=== PATIENT | male | born 1995 | race Caucasian/White ===

== ENCOUNTER 2022-07-31 09:17 | Observation (INO) | payer OTHER, SELFPAY ==
[2022-07-31] VITALS (11 sets, daily range): BP systolic 124–149; BP diastolic 67–88; PULSE 85–102; RESP 18–24; TEMP 36.6–36.7; O2SAT 91–94; BMI 27.1; BMI 26.8
--- NOTE | 2022-07-31 09:37 | CRLHL7_ITS ---
For Patients: As a result of the Century Cures Act, medical imaging exams and procedure reports are released immediately into your electronic medical record. You may view this report before your referring provider. If you have questions, please contact your health care provider. INDICATION: short of breath TECHNIQUE: Chest 1 view COMPARISON: None FINDINGS: Cardiovascular and mediastinum: Heart size and vasculature are normal in caliber and appearance. Lungs and pleural spaces: Lungs are clear. No sign of infiltrate or mass. No sign of pleural effusion. No pneumothorax. Bones and soft tissues: No significant findings. IMPRESSION: No acute findings. Dictated by Josh Jimenez MD @ 07/31/2022 11:03:30 AM (Electronically Signed)
--- NOTE | 2022-07-31 09:42 | ED_ITS ---
HPI - General Adult General Time Seen by Provider: 09:42 Date Seen: 07/31/22 Chief complaint: Shortness of Breath/Dyspnea Stated complaint: Short of breath, fever Time Seen by Provider: 07/31/22 09:42 Source: patient and RN notes reviewed Mode of arrival: ambulatory Limitations: no limitations History of Present Illness HPI narrative: This 21-year-old male is coming in with shortness of breath, difficulty breathing. He has been ill. Has had some sore throat with coughing. [place] feverish overnight. Came in today because he is significantly short of breath. He does have 4 cats in his house and has had a history of animal dander but this has not been problematic per report through the years. Denies any history of asthma. Related Data Home Medications Medication Instructions Recorded Confirmed No Known Home Medications 07/31/22 07/31/22 Allergies Allergy/AdvReac Type Severity Reaction Status Date / Time No Known Drug Allergies Allergy Verified 07/31/22 09:33 Review of Systems Status of ROS: Reports: 10 or more systems reviewed and unremarkable except as noted in History and below Exam Const: Vital Signs, click to edit/add: Vital Signs - 24 hr 07/31/22 09:32 07/31/22 09:54 Temperature 97.8 F Pulse Rate [Right Pulse Oximeter] 96 Respiratory Rate 22 22 Blood Pressure [Ri ght Upper Arm] 149/88 H Pulse Oximetry 91 92 Oxygen Delivery Me thod Room Air Nasal Cannula Oxygen Flow Rate 2 Documenting provider has reviewed patient's vital signs: yes Common normal s: average body habitus, oriented x3, no limitations, alert and well nourished General appearance: cooperative, well kempt and ill appearing Other: Nursing staff had applied oxygen on arrival, patient is tachypneic, speaking in short phrases. Mildly diaphoretic. Sitting up on the edge of the ER bed with 2 L nasal cannula oxygen on. Did turn the oxygen off when I was in with him and he went from 93% back down to 90%. Turned the oxygen back on. HENMT: Common normals: normocephalic, head/scalp atraumatic, hearing grossly normal bilaterally, external ears normal, EAC's normal, TM's normal bilaterally, external nose normal, nasal mucous membranes and turbinates normal, moist oral mucous membranes, oropharynx normal, dentition normal and gingiva normal Head and scalp: normocephalic and atraumatic Nose: external nose normal and nasal mucous membranes and turbinates normal External ear: external ears normal External auditory canal: EAC's normal Tympanic membrane: TM's normal bilaterally Eye: Common normals: PERRL, EOMs intact bilaterally, conjunctivae normal and no scleral icterus Conjunctiva: conjunctiva(e) normal Pupil: PERRL Neck & C-Spine: Common normals: full ROM, no lymphadenopathy, supple, no meningeal signs, no JVD and thyroid normal Thyroid: thyroid normal Chest: Common normals: inspection of chest normal and palpation of chest normal Resp: Effort & inspection: symmetric chest movement and tachypneic Auscultation: wheezes expiratory wheezes, inspiratory wheezes and throughout Cardio: Common normals: no JVD, regular rate, regular rhythm, S1 normal heart sound, S2 normal heart sound, no gallops, no clicks, no murmurs and no rub Rate: regular rate Rhythm: regular rhythm Heart sounds: S1 normal and S2 normal GI: Common normals: Normal to inspection, nondistended, normoactive bowel sounds present Extremity: Other: No noted lower extremity edema. Neuro: Common normals: oriented x3 Sensorium/orientation: alert Meningeal signs: no meningeal signs Psych: Appearance: well kempt Course Course Hospital Course: We will have him maintained on pulse oximetry, some supplemental oxygen. Am going to administer a DuoNeb, nursing staff had ordered a portable chest x-ray and we are waiting that. We will do the triple viral swab and obtain some laboratory evaluation. Infectious etiology with bronchospasm, underlying bronchospastic condition all possible etiologies here. He will be watched closely. Reevaluation(s) Reevaluation #1: Patient is re-examined. He has now diffuse expiratory wheezing, is moving air better but still sounds quite afflicted with bronchospasm. Will have respiratory therapy whom is with him initiate an albuterol neb. am going to give him 10 mg oral Zyrtec and 60 mg oral prednisone. Use senna feels are up on his CBC, white blood count is normal. Chest x-ray my preliminary read without any infectious etiology. We did discuss the high likelihood of this being allergen induced, need to consider the CT as the source. Sounds if he would be interested in seeing an oracle e business developer and doing further workup. Time: 10:43 Reevaluation #2: Have been updated by a respiratory therapy that patient did require oxygen again. He had a brief time just after I talked to mom regarding discharge where he went to 80 and 89% but then came back up. I reviewed with him that we were going to observe him here for little while longer prior to discharge. I was a bit worried about him having to go back into the environment where there were the cats. Thus, now with requiring oxygen again, will need admission. Time: 11:59 Consultations Consultation #1: Spoke with hospitalist, will agree with hospitalization. Time: 12:29 Vital Signs Vital signs: Initial Vital Signs Temperature 97.8 F 07/31/22 09:32 Temperature Source Temporal Artery Scan 07/31/22 09:32 Pulse Rate 96 07/31/22 09:32 Respiratory Rate 22 07/31/22 09:32 Blood Pressure 149/88 H 07/31/22 09:32 Blood Pressure Mean 108 07/31/22 09:32 Blood Pressure Position Sitting 07/31/22 09:32 Pulse Oximetry 91 07/31/22 09:32 Oxygen Delivery Method 07/31/22 09:32 Vital Signs Temperature 97.8 F 07/31/22 09:32 Pulse Rate 96 07/31/22 09:32 Respiratory Rate 22 07/31/22 09:32 Blood Pressure 149/88 H 07/31/22 09:32 Pulse Oximetry 91 07/31/22 09:32 Oxygen Delivery Method 07/31/22 09:32 Temperature 97.8 F 07/31/22 09:32 Pulse Rate 96 07/31/22 09:32 Respiratory Rate 22 07/31/22 09:54 Blood Pressure 149/88 H 07/31/22 09:32 Pulse Oximetry 92 07/31/22 09:54 Oxygen Delivery Method 07/31/22 09:54 Oxygen Flow Rate 2 07/31/22 09:54 Medical Decision Making Lab Data Labs: Lab Results 07/31/22 07/31/22 07/31/22 Range/Units 09:37 10:15 10:15 WBC 9.43 (4.50-11.00) K/uL RBC 5.77 (4.30-5.90) m/uL Hgb 16.5 (13.5-17.5) gm/dL Hct 48.9 (37.0-53.0) % MCV 85 (80-100) fL MCH 29 (26-34) pg MCHC 34 (32-36) gm/dL RDW Coeff of Martín 13.0 (11.5-15.5) % Plt Count 227 (140-440) K/uL Neut % (Auto) 68.2 (42.0-72.0) % Lymph % (Auto) 12.8 L (20-44) % [place] % (Auto) 6.7 (0.0-11.0) % Eos % (Auto) 11.7 H (0.0-7.0) % Baso % (Auto) 0.5 (0.0-3.0) % Neut # (Auto) 6.43 (1.7-7.0) K/uL Lymph # (Auto) 1.20 (0.90-2.90) K/uL [place] # (Auto) 0.60 (0.00-0.90) K/UL Eos # (Auto) 1.10 H (0.00-0.50) K/uL Baso # (Auto) 0.05 (0.00-0.30) K/uL Sodium 138 (135-149) mmol/L Potassium 4.7 (3.6-5.1) mmol/L Chloride 105 (96-114) mmol/L Carbon Dioxide 27 (20-32) mmol/L BUN 11 (5-24) mg/dL Creatinine 0.7 (0.5-1.5) mg/dL Estimated Creat Clear 172.44 Estimated GFR 129 ml/min Glucose 99 (60-115) mg/dL Lactate (0.5-1.9) mmol/L Calcium 9.1 (8.4-10.6) mg/dL Total Bilirubin 0.6 (0.1-1.5) mg/dL AST 28 (12-35) U/L ALT 26 (4-50) U/L Alkaline Phosphatase 59 (40-150) U/L C-Reactive Protein 1.6 H (0.5-1.0) mg/dL Total Protein 7.7 (6.0-8.3) g/dL Albumin 4.8 (3.3-5.0) g/dL Procalcitonin (<0.50) ng/mL SARS-CoV-2 (PCR) Negative SARS-CoV-2 (Negative) Influenza Type A (PCR) Negative PCR FLU A (Negative) Influenza Type B (PCR) Negative PCR FLU B (Negative) RSV (PCR) Negative PCR RSV (Negative) 07/31/22 07/31/22 Range/Units 10:15 10:15 WBC (4.50-11.00) K/uL RBC (4.30-5.90) m/uL Hgb (13.5-17.5) gm/dL Hct (37.0-53.0) % MCV (80-100) fL MCH (26-34) pg MCHC (32-36) gm/dL RDW Coeff of Martín (11.5-15.5) % Plt Count (140-440) K/uL Neut % (Auto) (42.0-72.0) % Lymph % (Auto) (20-44) % [place] % (Auto) (0.0-11.0) % Eos % (Auto) (0.0-7.0) % Baso % (Auto) (0.0-3.0) % Neut # (Auto) (1.7-7.0) K/uL Lymph # (Auto) (0.90-2.90) K/uL [place] # (Auto) (0.00-0.90) K/UL Eos # (Auto) (0.00-0.50) K/uL Baso # (Auto) (0.00-0.30) K/uL Sodium (135-149) mmol/L Potassium (3.6-5.1) mmol/L Chloride (96-114) mmol/L Carbon Dioxide (20-32) mmol/L BUN (5-24) mg/dL Creatinine (0.5-1.5) mg/dL Estimated Creat Clear Estimated GFR ml/min Glucose (60-115) mg/dL Lactate 0.6 (0.5-1.9) mmol/L Calcium (8.4-10.6) mg/dL Total Bilirubin (0.1-1.5) mg/dL AST (12-35) U/L ALT (4-50) U/L Alkaline Phosphatase (40-150) U/L C-Reactive Protein (0.5-1.0) mg/dL Total Protein (6.0-8.3) g/dL Albumin (3.3-5.0) g/dL Procalcitonin 0.05 (<0.50) ng/mL SARS-CoV-2 (PCR) (Negative) Influenza Type A (PCR) (Negative) Influenza Type B (PCR) (Negative) RSV (PCR) (Negative) Imaging Data Chest x-ray: Attestation: I have reviewed the pertinent imaging results. My impression: No acute cardiopulmonary pathology on my preliminary read. Radiologist's impression: Patient: ROSS BRICE Facility:?[facility] Patient ID:?[id number] Site Patient ID:?[id number]. Site :?[id number] Study:?XRay Chest PORTABLE-07/31/2022 10:39:33 AM Ordering Physician:Orestes Gray Final Report: INDICATION: short of breath TECHNIQUE: Chest 1 view COMPARISON: None FINDINGS: Cardiovascular and mediastinum: Heart size and vasculature are normal in caliber and appearance. Lungs and pleural spaces: Lungs are clear. No sign of infiltrate or mass. No sign of pleural effusion. No pneumothorax. Bones and soft tissues: No significant findings. IMPRESSION: No acute findings. Dictated by Josh Jimenez MD @ 07/31/2022 11:03:30 AM (Electronic Signature) Critical Care Time Critical Care Time Critical Care Time: No Discharge Plan Discharge Clinical Impression: Acute bronchospasm Patient Disposition: Admitted As Inpatient Condition: Stable Activity Level: Activity as Tolerated
[2022-07-31 10:18] LABS: Lactate* 0.6 mmol/L (0.5-1.9)
[2022-07-31 10:19] LABS: Basophils Absolute Auto 0.05 K/uL (0.00-0.30); Basophils Percent Auto 0.5 % (0.0-3.0); Eosinophils Percent Auto 11.7 % (0.0-7.0); Hematocrit 48.9 % (37.0-53.0); Hemoglobin* 16.5 gm/dL (13.5-17.5); Immature Granulocytes Abs Auto 0.01 K/uL (0.00-0.30); Immature Granulocytes Pct Auto 0.1 %; Lymphocytes Percent Auto 12.8 % (20-44); Mean Corpuscular HGB Conc 34 gm/dL (32-36); Mean Corpuscular Hemoglobin 29 pg (26-34); Mean Corpuscular Volume 85 fL (80-100); Monocytes Percent Auto 6.7 % (0.0-11.0); Neutrophils Absolute Auto 6.43 K/uL (1.7-7.0); Neutrophils Percent Auto 68.2 % (42.0-72.0); Platelet Count* 227 K/uL (140-440); Red Blood Count 5.77 m/uL (4.30-5.90); White Blood Count* 9.43 K/uL (4.50-11.00)
[2022-07-31 10:21] LABS: Slide Review Reflex No
[2022-07-31] MEDS: IPRAT-ALBUT 0.5-2.5 MG/3 ML NEB 1 NEB IH ×3 (10:23→21:28)
[2022-07-31 10:26] LABS: PCR FLU A Negative PCR FLU A (Negative); PCR FLU B Negative PCR FLU B (Negative); PCR RSV Negative PCR RSV (Negative)
[2022-07-31 10:33] LABS: SARS PCR* Negative SARS-CoV-2 (Negative)
[2022-07-31 10:37] LABS: Albumin* 4.8 g/dL (3.3-5.0); Chloride* 105 mmol/L (96-114); Potassium* 4.7 mmol/L (3.6-5.1); Sodium* 138 mmol/L (135-149)
[2022-07-31 10:39] LABS: Creatinine* 0.7 mg/dL (0.5-1.5); Est. Creatinine Clearance* 172.44; Estimated Glomerular Filt Rate 129 ml/min
[2022-07-31 10:40] LABS: Alanine Aminotransferase* 26 U/L (4-50); Alkaline Phosphatase* 59 U/L (40-150); Aspartate Amino Transferase* 28 U/L (12-35); Bilirubin Total* 0.6 mg/dL (0.1-1.5); Blood Urea Nitrogen* 11 mg/dL (5-24); Carbon Dioxide* 27 mmol/L (20-32); Total Protein* 7.7 g/dL (6.0-8.3)
[2022-07-31 10:41] LABS: Calcium* 9.1 mg/dL (8.4-10.6); Glucose* 99 mg/dL (60-115)
[2022-07-31 10:43] LABS: C Reactive Protein* 1.6 mg/dL (0.5-1.0)
[2022-07-31] MEDS: ALBUTEROL SULFATE 2.5 MG/3 ML VIAL.NEB NEB (10:44)
[2022-07-31 10:57] LABS: Procalcitonin* 0.05 ng/mL (<0.50)
[2022-07-31] MEDS: CETIRIZINE HCL 10 MG TABLET PO (11:08)
[2022-07-31] MEDS: predniSONE 20 MG TABLET 60 MG PO (11:08)
--- NOTE | 2022-07-31 11:54 | RESP.RT ---
Patient sitting up in bed, on Nasal Cannula 2 Lpm, Respiratory rate 22/minute, SaO2 93%. Patient forceful, barking, dry, non-productive cough. Bilateral Breath sounds with expiratory wheeze, chest tightness with breathes noted. DuoNeb given with on demand small volume nebulizer, mouthpiece, and Oxygen flow meter @ 8 Lpm. Patient tolerated well. Post treatment VSS, BBS with increased musical wheeze, more air movement, patient able to take larger breath. Patient is a smoker, states 1/2 ppd, also two cats moved into home with in last month.
--- NOTE | 2022-07-31 12:00 | RESP.RT ---
Second nebulizer treatment given with Albuterol (first was DuoNeb) with same set up. Post treatment BBS were increased musical wheeze with very good air movement. Trialed patient on room air, 30 minutes patient decreased SaO2 88%, returned to Nasal Cannula 2 Lpm, SaO2 93%.
--- NOTE | 2022-07-31 13:51 | PM.IMHP1 ---
Hospitalist- H&P: HPI History of Present Illness Date Seen: 07/31/22 Chief complaint: Short of breath, fever Narrative: Wong Pruitt is a 27 year old male with past medical history of seasonal allergies presenting for evaluation of SOB and cough. The patient lives with his roommate. They recently got two new cats. They have 4 total cats in the house. The patient has had worsening sob, cough, and wheezing over the last week. The patient states his symptoms worsens when he is around the new cats. He also works in [employer] at [employer]. He endorses cough and intermittent chest pain. In the ED the patient was hypoxic and noted to be wheezing. He was started on zyrtec, prednisone, and duoneb. The patient states SOB improved with duoneb. CXR with no acute findings. RSV/Influenza/COVID pcr negative Review of Systems Status of ROS: Reports: 10 or more systems reviewed and unremarkable except as noted in History and below [facility] Social History (Updated 07/31/22 @ 13:55 by Paco Thomas MD) Narrative: works in [employer] at [employer]. Negative for tobacco. positive cat allergy What is your current living situation: I presently have a place to live In past 12 months, lack of transportation kept you from medical appts, meetings, work, or getting things needed for daily living: Yes Meds Home Medications and Allergies Home Medications Medication Instructions Recorded Confirmed Type No Known Home Medications 07/31/22 07/31/22 History Allergies Allergy/AdvReac Type Severity Reaction Status Date / Time No Known Drug Allergies Allergy Verified 07/31/22 09:33 Exam Narrative: Exam Narrative: Gen: no acute distress HEENT: NCAT EOMI mmm Neck: Supple CV: RRR normal s1 s2 Lungs:end expiratory wheezing Abd: Soft,nt, nd Neuro: Alert, oriented, CN grossly intact; nonfocal screening?exam Psych: appropriate affect MSK: age appropriate muscle mass Skin; Warm, dry no rash on face Const: Vital Signs, click to edit/add: Vital Signs - 24 hr 07/31/22 09:32 07/31/22 09:54 07/31/22 09:31 Temperature 97.8 F Pulse Rate [Right Pulse Oximeter] 96 92 Respiratory Rate 22 22 18 Blood Pressure [Ri ght Upper Arm] 149/88 H Pulse Oximetry 91 92 93 Oxygen Delivery Me thod Room Air Nasal Cannula Nasal Cannula Oxygen Flow Rate 2 2 07/31/22 11:31 07/31/22 13:31 07/31/22 11:00 Temperature Pulse Rate [Right Pulse Oximeter] 92 Respiratory Rate 20 20 20 Blood Pressure [Ri ght Upper Arm] Pulse Oximetry 94 93 93 Oxygen Delivery Me thod Nasal Cannula Nasal Cannula Nasal Cannula Oxygen Flow Rate 2 2 2 07/31/22 13:30 Temperature Pulse Rate [Right Pulse Oximeter] Respiratory Rate 18 Blood Pressure [Ri ght Upper Arm] Pulse Oximetry Oxygen Delivery Me thod Nasal Cannula Oxygen Flow Rate 2 Hospitalist - H&P: Result Labs Labs: Short CBC 07/31/22 Range/Units 10:15 WBC 9.43 (4.50-11.00) K/uL Hgb 16.5 (13.5-17.5) gm/dL Hct 48.9 (37.0-53.0) % Plt Count 227 (140-440) K/uL BMP 07/31/22 10:15 Sodium 138 Potassium 4.7 Chloride 105 Carbon Dioxide 27 BUN 11 Creatinine 0.7 Glucose 99 Calcium 9.1 Liver Function 07/31/22 Range/Units 10:15 Total Bilirubin 0.6 (0.1-1.5) mg/dL AST 28 (12-35) U/L ALT 26 (4-50) U/L Alkaline Phosphatase 59 (40-150) U/L Albumin 4.8 (3.3-5.0) g/dL Assessment and Plan Assessment and plan (1) Acute bronchospasm: Status: Acute Plan Wong Pruitt is a 27 year old male with past medical history of seasonal allergies presenting for evaluation of wheezing, SOB and cough. The patient lives with his roommate. They recently got two new cats. They have 4 total cats in the house. The patient has had worsening sob, cough, and wheezing over the last week. The patient states his symptoms worsens when he is around the new cats. In the ED the patient was hypoxic and noted to be wheezing. He was started on zyrtec, prednisone, and duoneb. The patient states SOB improved with duoneb. CXR with no acute findings. RSV/Influenza/COVID pcr negative 1. Acute reactive airway disease, acute asthma exacerbation, likely secondary to environmental trigger from exposure to new cats with acute hypoxia -admit to observation -solumedrol -duonebs -claritin -PPI -RT consult -wean oxygen Code-Full DVT ppx-low risk Dispo-likely home 1 vs 2 days
[2022-07-31] MEDS: METHYLPREDNISOLONE SOD SUCC 62.5 MG/ML (125) 125 MG IVP (14:24)
[2022-07-31] MEDS: PANTOPRAZOLE SODIUM 40 MG INJ IVP (14:24)
[2022-07-31] MEDS: diphenhydrAMINE 25 MG CAPSULE PO (14:24)
[2022-07-31] MEDS: SODIUM CHLORIDE 0.9 % (FLUSH) 10 ML SYRINGE 5 ML IVF ×2 (14:24→21:28)
--- NOTE | 2022-07-31 23:25 | PC.NURSE ---
End of Shift: Patient pleasant and cooperative. Afebrile. O2 sats 90-92% on 1L NC. Sats decrease to upper 80s on room air. C/o SOB with activity and occasional non-productive cough. Pain from coughing in chest and back 2-3/10 and denies need for PRN pain medication. Tolerating regular diet with no nausea.
[2022-08-01] MEDS: BENZOCAINE/MENTHOL 1 EACH LOZENGE MUCOUS MEM (00:58)
[2022-08-01 01:06] VITALS: BP 118/71; PULSE 84; RESP 18; TEMP 36.7; O2SAT 93
[2022-08-01 01:10] VITALS: RESP 18
--- NOTE | 2022-08-01 07:40 | PC.NURSE ---
Status [id number] Pt alert and oriented. Denies pain. BP stable. Requiring 1L of supplemental oxygen overnight. Up independently. PRN lozenge given for dry throat. Pt resting throughout night.
[2022-08-01] MEDS: IPRAT-ALBUT 0.5-2.5 MG/3 ML NEB 1 NEB IH ×2 (08:06→11:05)
[2022-08-01] MEDS: LORATADINE 10 MG TABLET PO (08:06)
[2022-08-01] MEDS: SODIUM CHLORIDE 0.9 % (FLUSH) 10 ML SYRINGE 5 ML IVF (08:06)
[2022-08-01 08:08] VITALS: BP 106/65; PULSE 86; RESP 20; TEMP 36.7; O2SAT 92
[2022-08-01 09:59] VITALS: O2SAT 93
--- NOTE | 2022-08-01 10:09 | P.DS_ITS ---
DS: Providers Provider Date Seen: 08/01/22 Date of admission: 07/31/22 13:38 Primary care physician: Not a Local Provider Admitting Clinician: Paco Thomas MD Consults: 07/31/22 13:50 Consult to Respiratory Therapy [CONS] Routine Comment: Reason(s) for RT Consult:: New COPD/Asthma Diag Attending Physician on discharge: Paco Thomas MD Date of Discharge: 08/01/22 DS: Diagnosis Discharge Diagnosis (1) Acute bronchospasm: Status: Acute (2) Vapes non-nicotine containing substance: Status: Acute (3) Cat allergy, airborne: Status: Acute DS: Summary Hospital Course Hospital Course: Wong Pruitt is a 27 year old male with past medical history of seasonal allergies presenting for evaluation of wheezing, SOB and cough. The patient lives with his roommate. They recently got two new cats. They have 4 total cats in the house. The patient has had worsening sob, cough, and wheezing over the last week. The patient states his symptoms worsens when he is around the new cats. In the ED the patient was hypoxic and noted to be wheezing. He was started on zyrtec, prednisone, and duoneb. The patient states SOB improved with duoneb. CXR with no acute findings. RSV/Influenza/COVID pcr negative 1. Acute reactive airway disease, acute asthma exacerbation, likely secondary to environmental trigger from exposure to new cats with acute hypoxia and vaping -solumedrol transitioned to prednisone at discharge -duonebs -claritin -PPI -RT consult -wean oxygen; was weaned off oxygen 2. Hx of Vaping -counseled on vaping cessation 3. hx of Marijuana use -cessation counseling offered Discharge to home with PCP referral post hospital follow up in 5 days Time Spent with Patient Time attestation: Total time spent providing and/or coordinating discharge services: Time spent: Greater than 30 minutes Exam Narrative: Exam Narrative: Gen: no acute distress HEENT: NCAT EOMI mmm Neck: Supple CV: RRR normal s1 s2 Lungs: end expiratory wheezing significantly improved from admission Abd: Soft,nt, nd Neuro: Alert, oriented, CN grossly intact; nonfocal screening?exam Psych: appropriate affect MSK: age appropriate muscle mass Skin; Warm, dry no rash on face Const: Vital Signs, click to edit/add: Vital Signs - 24 hr 07/31/22 11:31 07/31/22 13:31 07/31/22 11:00 Temperature Pulse Rate [Left P ulse Oximeter] Pulse Rate [Right Pulse Oximeter] 92 Respiratory Rate 20 20 20 Blood Pressure [Le ft Arm] Pulse Oximetry 94 93 93 Oxygen Delivery Me thod Nasal Cannula Nasal Cannula Nasal Cannula Oxygen Flow Rate 2 2 2 07/31/22 13:30 07/31/22 13:51 07/31/22 15:00 Temperature 98.1 F Pulse Rate [Left P ulse Oximeter] 102 H Pulse Rate [Right Pulse Oximeter] Respiratory Rate 18 24 Blood Pressure [Le ft Arm] 124/84 Pulse Oximetry 92 92 Oxygen Delivery Me thod Nasal Cannula Nasal Cannula Oxygen Flow Rate 2 1 07/31/22 15:00 07/31/22 15:00 07/31/22 13:51 Temperature 98.1 F Pulse Rate [Left P ulse Oximeter] 85 Pulse Rate [Right Pulse Oximeter] Respiratory Rate 22 24 Blood Pressure [Le ft Arm] 129/67 Pulse Oximetry 91 91 92 Oxygen Delivery Me thod Nasal Cannula Nasal Cannula Nasal Cannula Oxygen Flow Rate 1 1 1 07/31/22 19:00 08/01/22 01:06 08/01/22 01:06 Temperature 98.1 F 98.1 F Pulse Rate [Left P ulse Oximeter] 93 84 Pulse Rate [Right Pulse Oximeter] Respiratory Rate 24 18 Blood Pressure [Le ft Arm] 137/74 118/71 Pulse Oximetry 92 93 93 Oxygen Delivery Me thod Nasal Cannula Nasal Cannula Oxygen Flow Rate 1 1 08/01/22 01:10 07/31/22 23:00 08/01/22 03:38 Temperature Pulse Rate [Left P ulse Oximeter] Pulse Rate [Right Pulse Oximeter] Respiratory Rate 18 18 Blood Pressure [Le ft Arm] Pulse Oximetry 93 Oxygen Delivery Me thod Nasal Cannula Nasal Cannula Oxygen Flow Rate 1 1 08/01/22 08:08 08/01/22 09:59 08/01/22 09:59 Temperature 98.1 F Pulse Rate [Left P ulse Oximeter] 86 Pulse Rate [Right Pulse Oximeter] Respiratory Rate 20 Blood Pressure [Le ft Arm] 106/65 Pulse Oximetry 92 93 93 Oxygen Delivery Me thod Room Air Room Air Oxygen Flow Rate DS: Data Data Completed and Pending Labs on day of discharge: Labs from last 24 hours 07/31/22 07/31/22 07/31/22 10:15 10:15 10:15 WBC RBC Hgb Hct MCV MCH MCHC RDW Coeff of Martín Plt Count Neut % (Auto) Lymph % (Auto) [place] % (Auto) Eos % (Auto) Baso % (Auto) Neut # (Auto) Lymph # (Auto) [place] # (Auto) Eos # (Auto) Baso # (Auto) Sodium 138 Potassium 4.7 Chloride 105 Carbon Dioxide 27 BUN 11 Creatinine 0.7 Estimated Creat Clear 172.44 Estimated GFR 129 Glucose 99 Lactate 0.6 Calcium 9.1 Total Bilirubin 0.6 AST 28 ALT 26 Alkaline Phosphatase 59 C-Reactive Protein 1.6 H Total Protein 7.7 Albumin 4.8 Procalcitonin 0.05 SARS-CoV-2 (PCR) Influenza Type A (PCR) Influenza Type B (PCR) RSV (PCR) 07/31/22 07/31/22 10:15 09:37 WBC 9.43 RBC 5.77 Hgb 16.5 Hct 48.9 MCV 85 MCH 29 MCHC 34 RDW Coeff of Martín 13.0 Plt Count 227 Neut % (Auto) 68.2 Lymph % (Auto) 12.8 L [place] % (Auto) 6.7 Eos % (Auto) 11.7 H Baso % (Auto) 0.5 Neut # (Auto) 6.43 Lymph # (Auto) 1.20 [place] # (Auto) 0.60 Eos # (Auto) 1.10 H Baso # (Auto) 0.05 Sodium Potassium Chloride Carbon Dioxide BUN Creatinine Estimated Creat Clear Estimated GFR Glucose Lactate Calcium Total Bilirubin AST ALT Alkaline Phosphatase C-Reactive Protein Total Protein Albumin Procalcitonin SARS-CoV-2 (PCR) Negative SARS-CoV-2 Influenza Type A (PCR) Negative PCR FLU A Influenza Type B (PCR) Negative PCR FLU B RSV (PCR) Negative PCR RSV Discharge Plan Discharge Disposition: Home, Self-Care Date of Admission: 07/31/22 13:38 Attending Provider on Discharge: Paco Thomas Primary Care Provider: Provider,Not a Local Condition: Stable Anticipated Discharge Date/Time: 08/01/22 14:00 Discharge Medications: New prednisone 20 mg tablet 40 mg PO DAILY Qty: 10 0RF Rx Instructions: Take 40 mg (Two tablets) daily with breakfast for 5 days then stop albuterol sulfate 90 mcg/actuation HFA aerosol inhaler 2 puff inhalation Q6H PRN (Reason: shortness of breath or wheezing) Qty: 6.7 0RF cetirizine [24Hour Allergy] 10 mg tablet 10 mg PO DAILY PRNQty: 10 0RF Discharge Orders: Discharge Order (Routine); Ordered 08/01/22 Ordered By: Paco Thomas Patient Education: Asthma (ED), Bronchospasm (ED) Additional Instructions: Need to take prednisone as prescribed. Recommend starting to take Zyrtec 10 mg daily to help prevent allergic response. Use albuterol 2 puffs every 4 hours with the spacer as needed for coughing or wheezing. Try to keep cats out of your bedroom. Recommend follow-up with primary care provider, may need to consider other medications like Singulair or Flovent as possibilities if you have ongoing issues. Recommend consultation with an filter tip catcher if needed, I do wonder if your current symptoms might not be allergy induced. Should you have any significant worsening of your breathing, increased difficulty breathing, develops fever with these symptoms, do need to be re-evaluated. There does not seem to be an infectious cause at this time for your symptoms but if fever does develop, do recommend re-evaluation. Activity Level: Activity as Tolerated Discharge Diet: Regular Follow Up Appointments: Josh Crooks MD [Staff Physician] - 08/09/22 11:00 am ([facility] [place] office. Please have current provider fax records prior to visit. Fax number is [phone].) Provider,Not a Local [Primary Care Provider] - (Please follow up to establish care with [facility] post hospital follow up for asthma in 3-5 days) Forms: [employer] Info Instructions
[2022-08-01] MEDS: METHYLPREDNISOLONE SOD SUCC 62.5 MG/ML (125) 125 MG IVP (10:32)
[2022-08-01 11:02] VITALS: BP 128/73; PULSE 99; RESP 16; TEMP 36.6; O2SAT 93
--- NOTE | 2022-08-01 11:28 | PC.NURSE ---
Tabitha was discharged. Discharge instructions and follow up recommendations reviewed and understood by patient. Will see Daksha in [place] next week. Prescriptions sent into [facility]. PIV taken out and catheter intact. Has been on RA all morning and sating 93%. Tolerating a regular diet. Voiding and passing flatus. No pain. questions answered. Patient left via ambulatory.
== END 2022-08-01 11:32 | disposition home or self-care (01) ==
LOC: ED 12:00 → MEDSURG 13:38
PROVIDERS: Admitting Provider Hospitalist; Emergency Provider Family Medicine; Visit Provider Hospitalist
DX: R09.02 Hypoxemia (principal); J98.01 Acute bronchospasm; J30.81 Allergic rhinitis due to animal (cat) (dog) hair and dander; R06.02 Shortness of breath; Z87.891 Personal history of nicotine dependence; R05.9 Cough, unspecified; Z72.89 Other problems related to lifestyle; F12.21 Cannabis dependence, in remission; J68.3 Other acute and subacute respiratory conditions due to chemicals, gases, fumes and vapors; Z20.822 Contact with and (suspected) exposure to COVID-19
CPT/HCPCS: 36415; 71045; 80053; 83605; 84145; 85025; 86140; 87502; 87631; 87634; 87635; 94640; 94761; 96374; 96375; 96376; 99285; A9270; C9113; G0378; J2930; J7512